=== PATIENT | female | born 1950 | race Caucasian/White ===

== ENCOUNTER 2020-03-05 09:16 | Outpatient (CLI) | payer OTHER | END 2020-03-05 15:00 | disposition home or self-care (01) | LOC: LAB 09:16 | DX: N30.00 Acute cystitis without hematuria (principal) ==

== ENCOUNTER 2023-06-15 11:51 | Outpatient (CLI) | payer OTHER | END 2023-06-15 11:56 | disposition home or self-care (01) | LOC: LAB 11:51 | PROVIDERS: ATTEND Urology | DX: N39.0 Urinary tract infection, site not specified (principal); Z88.0 Allergy status to penicillin; Z88.1 Allergy status to other antibiotic agents; Z91.013 Allergy to seafood ==